=== PATIENT | male | born 1945 | race Caucasian/White ===

== ENCOUNTER 2019-08-04 12:07 | Emergency (ER) | payer MEDICARE ==
[2019-08-04 12:35] VITALS: BP 129/84
== END 2019-08-04 13:30 | disposition left against medical advice (07) ==
LOC: ED 12:07
DX: K59.00 Constipation, unspecified (principal)

== ENCOUNTER 2019-08-06 15:57 | Emergency (ER) | payer MEDICARE ==
[~2019-08-06] VITALS: Ht 167.6 cm; Wt 65.9 kg
[2019-08-06 16:09] VITALS: BP 174/92
[2019-08-06] MEDS ORDERED: AMLODIPINE BESYL5 MG PO (16:14)
[2019-08-06] MEDS ORDERED: ATORVASTATIN CA40 MG PO (16:14)
[2019-08-06] MEDS ORDERED: FINASTERIDE5 M1 PO (16:14)
[2019-08-06] MEDS ORDERED: ZOLPIDEM TART6.25 MG PO (16:14)
== END 2019-08-06 18:50 | disposition home or self-care (01) ==
LOC: ED 15:57
DX: K59.00 Constipation, unspecified (principal); G20 Parkinson's disease; F02.80 Dementia in other diseases classified elsewhere, unspecified severity, without behavioral disturbance, psychotic disturbance, mood disturbance, and anxiety